=== PATIENT | male | born 1985 ===

== ENCOUNTER 2020-09-14 21:15 | Emergency (ER) | payer SELFPAY ==
[2020-09-14 21:54] VITALS: BP 117/78
[2020-09-14] MEDS ORDERED: ACETAMINOPHEN 325 MG TAB PO ONE (22:20)
--- NOTE | 2020-09-14 22:22 | Emergency Department Report ---
ED Extremity Problem HPI - General Chief complaint: Extremity Injury, Lower Stated complaint: PAIN IN LEGS/FEET Time Seen by Provider: 09/14/20 22:10 Source: patient Mode of arrival: Ambulatory Limitations: No Limitations - History of Present Illness Initial comments: 35-year-old -[place] male presents to the emergency room complaining of bilateral lower legs pain patient states that this happens intermittently but today it is gotten worse. Patient states that it feels like it is cramping and that his legs are locking. Patient states he is drinking water and Gatorade. He does smoke cigarettes and he does smoke marijuana but does not drink alcohol. Patient states that the pain is constantly from his feet up to his knees. Patient denies any injury. Patient has not taken anything for his pain. 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 MD Complaint: extremity pain -: This morning Location: bilateral lower extremity History of Same: Yes Severity scale (0 -10): 4 Consistency: intermittent Worsens with: nothing Associated Symptoms: denies other symptoms. denies: chest pain, shortness of breath, fever, myalgias - Related Data Allergies Allergy/AdvReac Type Severity Reaction Status Date / Time No Known Allergies Allergy Unverified 09/14/20 22:15 ED Review of Systems ROS: Stated complaint: PAIN IN LEGS/FEET Other details as noted in HPI Comment: All other systems reviewed and negative ED Past Medical Hx - Past Medical History Previous Medical History?: No - Surgical History Past Surgical History?: No - Social History Smoking Status: Never Smoker ED Physical Exam - General Limitations: No Limitations General appearance: alert, in no apparent distress - Head Head exam: Present: atraumatic, normocephalic - Eye Eye exam: Present: normal appearance - Neck Neck exam: Present: normal inspection, full ROM - Respiratory Respiratory exam: Absent: accessory muscle use - Extremities Exam Extremities exam: Present: full ROM, tenderness (Ankle feet calf and knee), calf tenderness, other - Back Exam Back exam: Present: normal inspection - Neurological Exam Neurological exam: Present: alert, oriented X3, normal gait - Psychiatric Psychiatric exam: Present: normal affect, normal mood - Skin Skin exam: Present: warm, dry, intact, normal color. Absent: rash ED Course Vital Signs 09/14/20 21:42 Temperature 98.8 F Pulse Rate 97 H Respiratory 18 Rate Blood Pressure 117/78 O2 Sat by Pulse 97 Oximetry ED Medical Decision Making - Lab Data Result diagrams: 09/14/20 22:24 09/14/20 22:24 Critical care attestation.: If time is entered above; I have spent that time in minutes in the direct care of this critically ill patient, excluding procedure time. ED Disposition Clinical Impression: Bilateral pain of leg and foot Disposition: DC-01 TO HOME OR SELFCARE Is pt being admited?: No Does the pt Need Aspirin: No Condition: Stable Instructions: Acute Knee Pain, Adult, [id number] Additional Instructions: All labs are stable. I recommend Tylenol or ibuprofen for pain. You can also use [id number] Voltaren gel which is a pain topical medication. Follow-up with the primary care provider. Encouraged to stop smoking. Referrals: PRIMARY CARE, [Primary Care Provider] - 3-5 Days [facility] [Provider Group] - 3-5 Days Forms: Work/School Release Form(ED)
[2020-09-14 22:59] LABS: Basophils % (Auto) 0.2 % (0.0-1.8); Eosinophils % (Auto) 0.5 % (0.0-4.3); Hematocrit 40.7 % (35.5-45.6); Hemoglobin 13.2 gm/dl (11.8-15.2); Lymphocytes # (Auto) 2.1 K/mm3 (1.2-5.4); Lymphocytes % (Auto) 25.6 % (13.4-35.0); Mean Corpuscular HGB Conc 33 % (32-34); Mean Corpuscular Volume 91 fl (84-94); Monocytes # (Auto) 0.9 K/mm3 (0.0-0.8); Monocytes % (Auto) 11.5 % (0.0-7.3); Platelet Count 201 K/mm3 (140-440); Red Blood Count 4.49 M/mm3 (3.65-5.03)
[2020-09-14 23:10] LABS: Alanine Aminotransferase 14 units/L (7-56); Albumin 4.2 g/dL (3.9-5); BUN/Creatinine Ratio 11; Blood Urea Nitrogen 12 mg/dL (9-20); Calcium 9.5 mg/dL (8.4-10.2); Hemolysis Index 1
== END 2020-09-14 23:45 | disposition home or self-care (01) ==
LOC: ED 21:15
DX: M79.604 Pain in right leg (principal); M79.605 Pain in left leg; M25.571 Pain in right ankle and joints of right foot; M25.572 Pain in left ankle and joints of left foot
CPT/HCPCS: 36415; 80053; 82962; 85025; 99283

== ENCOUNTER 2021-08-25 10:54 | Emergency (ER) | payer SELFPAY ==
[2021-08-25 11:21] VITALS: BP 119/74
--- NOTE | 2021-08-25 11:36 | Emergency Department Report ---
ED Extremity Problem HPI - General Chief complaint: Extremity Injury, Lower Stated complaint: RIGHT LEG PAIN Source: patient Mode of arrival: Ambulatory Limitations: No Limitations - History of Present Illness Initial comments: 36 yom with no pmh presents to ed for evaluation of one week history of right leg pain. He denies injury but states that he has pain to the front of his right lower leg, the front of his right upper leg and the back of his right upper leg. He states that pain is worse as the day goes on and is at its worse when he has to stand for long periods of time at work. He denies any leg swelling, cp, sob, hemoptysis. MD Complaint: extremity pain Onset/Timin -: Gradual, week(s) Location: right, lower extremity History of Same: No -: No myalgia, No fever, No associated dyspnea, No associated chest pain Radiation: none Severity scale (0 -10): 7 Quality: aching Consistency: constant Improves with: rest Worsens with: weight bearing, walking Associated Symptoms: denies: chest pain, shortness of breath, fever, rash - Related Data Previous Rx's Medication Instructions Recorded Last Taken Type Naproxen [Naprosyn] 500 mg PO BID 10 Days #20 tab 08/25/21 Unknown Rx Allergies Allergy/AdvReac Type Severity Reaction Status Date / Time No Known Allergies Allergy Verified 08/25/21 11:21 ED Review of Systems ROS: Stated complaint: RIGHT LEG PAIN Other details as noted in HPI Comment: All other systems reviewed and negative Musculoskeletal: as per HPI ED Past Medical Hx - Past Medical History Previous Medical History?: No - Social History Smoking Status: Never Smoker - Medications Home Medications: Home Medications Medication Instructions Recorded Confirmed Last Taken Type Naproxen [Naprosyn] 500 mg PO BID 10 Days #20 tab 08/25/21 Unknown Rx ED Physical Exam - General General appearance: alert, in no apparent distress - Eye Eye exam: Absent: conjunctival injection - Respiratory Respiratory exam: Absent: respiratory distress - Cardiovascular Cardiovascular Exam: Present: regular rate - GI/Abdominal GI/Abdominal exam: Absent: distended - Expanded Lower Extremity Exam Right Hip exam: Present: full ROM Upper Leg exam: Present: normal inspection, full ROM, tenderness. Absent: swelling, laceration, deformity, erythema Lower Leg exam: Present: normal inspection, full ROM, tenderness. Absent: swelling, ecchymosis, deformity, Yoselin's sign Neuro vascular tendon exam: Present: no vascular compromise. Absent: pulse deficit, abnormal cap refill, motor deficit, sensory deficit, extremity cold to touch, pallor, significant pain with passive ROM of distal joint Gait: Positive: observed and normal - Neurological Exam Neurological exam: Present: alert, oriented X3 - Psychiatric Psychiatric exam: Present: normal affect, normal mood - Skin Skin exam: Present: warm, dry, intact ED Course Vital Signs 08/25/21 08/25/21 11:16 11:21 Temperature 99.1 F Pulse Rate 111 H Respiratory 16 Rate Blood Pressure 119/74 [Right] O2 Sat by Pulse 100 Oximetry ED Medical Decision Making - Medical Decision Making 36 yom with no pmh presents to ed for evaluation of one week history of right leg pain. He denies injury but states that he has pain to the front of his right lower leg, the front of his right upper leg and the back of his right upper leg. He states that pain is worse as the day goes on and is at its worse when he has to stand for long periods of time at work. He denies any leg swelling, cp, sob, hemoptysis. Patient noted to muscle tenderness in RLE.He will be treated with 7 day coarse of naproxen with a few days of rest. He was advised to follow up pcp if no improvement or to ED if worsening symptoms or he develops sob, cp, or hemoptysis. Critical care attestation.: If time is entered above; I have spent that time in minutes in the direct care of this critically ill patient, excluding procedure time. ED Disposition Clinical Impression: Acute pain of right lower extremity Disposition: HOME / SELF CARE / HOMELESS Is pt being admited?: No Does the pt Need Aspirin: No Instructions: How to Use Cold Therapy, [id number], Acute Knee Pain, Adult Additional Instructions: Please take medications as prescribed. Rest for the next few days and increase water intake. Follow up with your primary care provider if no improvement. Return to the ER if you develop cp, sob, or coughing up blood. Prescriptions: Naproxen [Naprosyn] 500 mg PO BID 10 Days #20 tab Forms: Work/School Release Form(ED) Time of Disposition: 11:45
== END 2021-08-25 12:19 | disposition home or self-care (01) ==
LOC: ED 10:54
DX: M79.604 Pain in right leg (principal)
CPT/HCPCS: 99282